=== PATIENT | male | born 1985 | race Caucasian/White ===

== ENCOUNTER 2017-03-07 13:14 | Emergency (ER) | payer SELFPAY ==
[~2017-03-07] VITALS: Ht 175.3 cm; Wt 70.0 kg
[2017-03-07 13:17] VITALS: BP 129/80; PULSE 98; RESP 18; TEMP 97.7; O2SAT 97
== END 2017-03-07 15:32 | disposition left against medical advice (07) ==
LOC: NED 13:14
DX: R68.89 Other general symptoms and signs (principal)
CPT/HCPCS: 99281